=== PATIENT | female | born 1975 | race Caucasian/White ===

== ENCOUNTER 2021-02-06 13:23 | Emergency (ER) | payer BC ==
[~2021-02-06] VITALS: Ht 160 cm; Wt 77.1 kg
[2021-02-06] MEDS ORDERED: QUESTRAN PACKET4 GM PO (13:49)
[2021-02-06] MEDS ORDERED: LORATIDINE 10 M10 M1 PO (13:49)
[2021-02-06 14:25] LABS: ABSOLUTE NEUTROPHILS 7.2 thou/uL (1.4-8.2); BASOPHILS 0.4 % (0.0-2.0); EOSINOPHILS 0.2 % (0.0-3.0); HEMATOCRIT 43.6 % (37.0-47.0); HEMOGLOBIN 15.1 gm/dL (12.0-15.0); LYMPHOCYTES 26.2 % (24.0-44.0); MCHC 34.7 g/dL (28.0-37.0); MONOCYTES 4.5 % (1.0-8.0); PLATELET COUNT 217 thou/uL (150-400); POLYS 68.7 % (36.0-66.0); RBC 4.59 mil/uL (4.20-5.00); RDW 12.9 % (10.5-14.5); WBC 10.4 thou/uL (4.0-11.0)
[2021-02-06 14:48] LABS: CALCIUM 8.8 mg/dL (8.5-10.1); CREATININE 0.9 mg/dL (0.6-1.0); POTASSIUM 4.1 mmol/L (3.5-5.1)
[2021-02-06 14:57] LABS: TOTAL BILIRUBIN 0.7 mg/dL (0.2-1.0); TOTAL PROTEIN 7.4 g/dL (6.4-8.2)
[2021-02-06 16:06] VITALS: BP 130/72
--- NOTE | 2021-02-08 07:59 | EKG ---
[place] [address] [facility] [place] [address] ELECTROCARDIOGRAM REPORT Name: KATHRYN SANDOVAL Room #: [facility] Redd#: [id number] Admission: 02/06/21 Attend Phys: Discharge: 02/06/21 Date of : 77 Report #: [id number] [facility] ED Test Date: 2021-02-06 Test Time: 13:28:08 Pat Name: KATHRYN SANDOVAL Department: Room: Gender: F Template Maker: : 1975 Requested By: Brian Benjamin Order Number: [id number] MD: Artur Gutierrez Measurements Intervals [place] Rate: 99 P: 70 GA: 134 QRS: 27 QRSD: 100 T: 44 QT: 345 QTc: 443 Interpretive Statements Sinus rhythm Borderline T abnormalities, anterior leads No previous ECG available for comparison Electronically Signed On 02-08-2021 7:59:03 CDT by Artur Gutierrez [email or web address] <ELECTRONICALLY SIGNED> By: Artur Gutierrez MD, [facility] 02/08/21 [id number] Artur Gutierrez MD, FACC /EPI
== END 2021-02-06 16:07 | disposition home or self-care (01) ==
LOC: ER 13:23
PROVIDERS: Emergency Medicine
DX: R00.2 Palpitations (principal); Z86.16 Personal history of COVID-19; Z79.899 Other long term (current) drug therapy; Z88.5 Allergy status to narcotic agent

== ENCOUNTER → 2021-02-22 | Outpatient (CLI) | payer BC ==
[~2021-02-22] MED LIST: LORATIDINE 10 M10 M1 PO; QUESTRAN PACKET4 GM PO
== END ==
LOC: SJCVCIMAG 08:48
PROVIDERS: ATTEND Internal Medicine
DX: I08.1 Rheumatic disorders of both mitral and tricuspid valves (principal); R00.2 Palpitations; I47.1 Supraventricular tachycardia